=== PATIENT | female | born 1975 | race Caucasian/White ===

== ENCOUNTER 2019-05-13 02:33 | Emergency (ER) | payer BC, OTHER ==
[~2019-05-13] VITALS: Ht 162.5 cm; Wt 62.7 kg
[2019-05-13] MEDS ORDERED: RT-ALBUTEROL/IPRATROPIUM 3 ML (DUONEB) VIAL INH STA ×2 (02:40→03:36)
--- NOTE | 2019-05-13 02:48 | ED Dyspnea ---
General Stated Complaint: BREATHING PROBLEMS Source of Information: Patient History of Present Illness Date Seen by Provider: May 13, 2019 Time Seen by Provider: 02:33 Initial Comments 44 yo F presenting with shortness of breath and cough for over a week. She has right sided chest pain since yesterday morning and it radiates into her right arm. She has had similar pain and symptoms in the past with a collapsed lung. She has had 2 previous episodes of pneumothorax in the past. She has had URI symptoms recently but felt she was doing ok and that it was just a cold until yesterday morning when the pain started. Then overnight she was having continued pain on the right that kept making it harder for her to breath so she finally had her family bring her to the hospital to be evaluated. She denies using any tobacco. She does use an albuterol inhaler and has been using it more recently but does not feel it was helping her. she has been coughing up thick yellow sputum and has been wheezing recently. Allergies and Home Medications Allergies Coded Allergies: pseudoephedrine (Verified Adverse Reaction, Severe, 05/13/19) tachycardia, feels like she is on "speed" Home Medications Albuterol Sulfate 2.5 Mg/3 Ml Vial.neb, 2.5 MG INH Q4H PRN for WHEEZING Prescribed by: ERENDIRA GLYNN on 05/13/19 0347 Azithromycin 250 Mg Tablet, 250 MG PO DAILY Prescribed by: ERENDIRA GLYNN on 05/13/19327 Fluticasone Propion/Salmeterol 1 Each Blst.w.dev, 1 EACH IH Q12H Dispense 1 month supply/device Prescribed by: ERENDIRA GLYNN on 05/13/19 0328 Patient Home Medication List Home Medication List Reviewed: Yes Review of Systems Review of Systems Constitutional: No chills; fever (off and on) EENTM: no symptoms reported Respiratory: cough, phlegm (thick yellow sputum with cough), short of breath Cardiovascular: chest pain (right sided since Friday morning) Gastrointestinal: no symptoms reported Genitourinary: no symptoms reported Musculoskeletal: see HPI, other (right sided chest pain going into right arm since Friday morning) Skin: no symptoms reported Psychiatric/Neurological: Anxiety Past Nnjlfym-Sypmpw-Xgkngl Hx Past Med/Social Hx: Reviewed Nursing Past Med/Soc Hx Patient Social History Smoking Status: Former Smoker Past Medical History Surgeries: Yes (chest tube x 2) Respiratory: Yes Asthma Physical Exam Vital Signs Vital Signs - First Documented 05/13/19 02:47 Temp 36.5 Pulse 97 Resp 24 B/P (MAP) 181/93 (122) Pulse Ox 93 O2 Delivery Room Air Capillary Refill : Height, Weight, BMI Height: '" Weight: lbs. oz. kg; BMI Method: General Appearance: WD/WN, Anxious, Mild Distress HEENT: PERRL/EOMI, Normal ENT Inspection, Pharynx Normal Neck: Full Range of Motion, Non Tender, Supple Respiratory: Chest Non Tender, No Accessory Muscle Use, No Respiratory Distress, Wheezing (present in RUL especially) Cardiovascular: Regular Rate, Rhythm, Normal Peripheral Pulses Neurologic/Psychiatric: Alert, Oriented x3, No Motor/Sensory Deficits Skin: Normal Color, Warm/Dry Progress/Results/Core Measures Results/Orders My Orders Orders - ERENDIRA GLYNN MD Albuterol/Ipra Inhalation Soln (Duoneb I (05/13/19 02:40) Svn Small Volume Nebulizer (05/13/19 02:40) Chest Pa/Lat (2 View) (05/13/19 02:42) Dexamethasone Injection (Decadron Inject (05/13/19 03:15) Azithromycin Tablet (Zithromax Tablet) (05/13/19 03:15) Albuterol/Ipra Inhalation Soln (Duoneb I (05/13/19 03:36) Rx-Albuterol Nebs (Rx-Proventil Nebs) (05/13/19 03:36) Svn Small Volume Nebulizer (05/13/19 03:36) Vital Signs/I&O 05/13/19 02:47 Temp 36.5 Pulse 97 Resp 24 B/P (MAP) 181/93 (122) Pulse Ox 93 O2 Delivery Room Air Progress Progress Note #1: Progress Note she has breath sounds throughout but does have wheezing worse in RUL. Will try a duoneb breathing treatment and obtain 2 view CXR. Progress Note #2: Progress Note No acute abnormality on CXR or pneumothorax seen on my review of her 2 view CXR. She feels much better after her duoneb breathing treatment. Try steroid injection with azithromycin. monitor for reaction to the steroid and plan to do another treatment before discharge. try to d/c on home nebulizer and finish z pack as well as take mucinex. Refill Advair for home as well since she had been on it previously. Progress Note #3: Progress Note Tolerating steroid shot so given a duoneb treatment prior to d/c and sent with nebulizer and take home pack of albuterol for nebulizer. 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 Diagnostic Imaging Diagonstic Imaging: Xray Plain Films/CT/US/NM/MRI: chest Comments On my review of her two-view chest x-ray did not appreciate any acute pneumothorax or pneumonia or infiltrate. She does have some apparent COPD type c hanges. There are increased inflammatory changes. Departure Impression Primary Impression: Bronchitis with bronchospasm Additional Impressions: Dyspnea Qualified Codes: R06.02 - Shortness of breath Upper respiratory infection with cough and congestion Disposition: HOME, SELF-CARE Condition: Stable Departure-Patient Inst. Decision time for Depature: 03:46 Referrals: BRIA GARDUNO MD (PCP/Family) Primary Care Physician Patient Instructions: Acute Bronchitis, Adult (DC), Shortness of Breath (Dyspnea) (DC), Bacterial Upper Respiratory Infection, Adult (DC) Add. Discharge Instructions: Take the full course of antibiotics. Use Mucinex to help loosen cough and congestion. Drink plenty of water to help loosen your cough and congestion Use a Humidifier at the bedside to help with your cough and congestion. Continue on your inhaler and use the Advair as well to help with your breathing and wheezing. Check with Dr. Garduno for continued trouble breathing Scripts Nebulizer (Compact Compressor Nebulizer) 1 Each Each EACH MC Q4H PRN for WHEEZING, #1 0 Refills 1 Nebulizer with Accessory Kit to use Albuterol Nebulized every 4 hours as needed for wheezing From Acute bronchitis, Short of breath and dyspnea Prov: ERENDIRA GLYNN MD 05/13/19 Albuterol Sulfate (Albuterol Sulfate) 2.5 Mg/3 Ml Vial.neb 2.5 MG INH Q4H PRN for WHEEZING for 14 Days, #50 EA 1 Refill Prov: ERENDIRA GLYNN MD 05/13/19 Azithromycin (Azithromycin) 250 Mg Tablet 250 MG PO DAILY for 4 Days, #4 TAB 0 Refills Prov: ERENDIRA GLYNN MD 05/13/19 Fluticasone Propion/Salmeterol (Fluticasone-Salmeterol 250-50) 1 Each Blst.w.dev 1 EACH IH Q12H for 30 Days, #1 0 Refills Dispense 1 month supply/device Prov: ERENDIRA GLYNN MD 05/13/19 Work/School Note: Work Release Form Date Seen in the Emergency Department: May 13, 2019 Return to Work: May 14, 2019 Restrictions: No Restrictions ERENDIRA GLYNN MD May 13, 2019 02:48 POS
[2019-05-13] MEDS ORDERED: AZITHROMYCIN 250 MG TAB (ZITHROMAX) PO STA (03:15)
[2019-05-13] MEDS ORDERED: DEXAMETHASONE 10 MG/ML (DECADRON) 1 ML VIAL IM STA (03:15)
[2019-05-13] MEDS ORDERED: FLUT1BLS12 IH (03:28)
[2019-05-13] MEDS ORDERED: AZIT250T12 PO (03:28)
[2019-05-13] MEDS ORDERED: RX-ALBUTEROL NEB 2.5 MG/3 ML PACK #5 IH STA (03:36)
[2019-05-13] MEDS ORDERED: ALBU2.5V4 INH (03:47)
[2019-05-13 03:51] VITALS: BP 157/90
[2019-05-13] MEDS ORDERED: NEBU1KIT3 MC (03:58)
--- NOTE | 2019-05-13 07:10 | Diagnostic Imaging Report ---
INDICATION: Dyspnea in patient with previous pneumothorax PA and lateral views of the chest are obtained. There is no previous study for comparison. Heart size and pulmonary vascularity are within normal limits. There is extensive lucency within the upper lobes bilaterally indicating air trapping and probable bullous emphysema. No definite pneumothorax identified. There is no significant pleural fluid. There is mild diffuse thoracic spondylosis. IMPRESSION: Findings are compatible with emphysema with primarily upper lobe involvement. No definite acute abnormalities identified however comparison with older studies would be of use. Dictated by: Dictated on workstation # [id number]
== END 2019-05-13 04:00 | disposition home or self-care (01) ==
LOC: ER FS 02:38
DX: J40 Bronchitis, not specified as acute or chronic (principal); J98.01 Acute bronchospasm; J06.9 Acute upper respiratory infection, unspecified; Z88.8 Allergy status to other drugs, medicaments and biological substances; Z87.891 Personal history of nicotine dependence; Z87.09 Personal history of other diseases of the respiratory system
CPT/HCPCS: 71046; 94640

== ENCOUNTER 2020-05-16 19:03 | Emergency (ER) | payer BC ==
[~2020-05-16] VITALS: Ht 162.5 cm; Wt 60.6 kg
[~2020-05-16 19:03] MED LIST: ALBU2.5V4 INH; AZIT250T12 PO; FLUT1BLS12 IH; NEBU1KIT3 MC
--- NOTE | 2020-05-16 19:35 | ED Head Injury ---
General Chief Complaint: Laceration Stated Complaint: EYEBROW LAC Nursing Triage Note: Pt c/o left eyebrow laceration, hit on chicken coop door. Source: patient Exam Limitations: no limitations History of Present Illness Date Seen by Provider: May 16, 2020 Time Seen by Provider: 19:31 Initial Comments Patient states approximately one hour prior to arrival she bent over and hit the chicken coop door with her left eyebrow sustaining a laceration was no loss of consciousness no other injuries tetanus shots are up-to-date there is no bleeding no history of contamination Occurred: just prior to arrival Severity: mild Location: frontal Method of Injury: direct blow Loss of Consciousness: no loss of consciousness Associated Systoms: Denies Symptoms Allergies and Home Medications Allergies Coded Allergies: pseudoephedrine (Verified Adverse Reaction, Severe, 05/13/19) tachycardia, feels like she is on "speed" Home Medications Albuterol Sulfate 2.5 Mg/3 Ml Vial.neb, 2.5 MG INH Q4H PRN for WHEEZING Prescribed by: ERENDIRA GLYNN on 05/13/19 034 Azithromycin 250 Mg Tablet, 250 MG PO DAILY Prescribed by: ERENDIRA GLYNN on 05/13/19327 Fluticasone Propion/Salmeterol 1 Each Blst.w.dev, 1 EACH IH Q12H Dispense 1 month supply/device Prescribed by: ERENDIRA GLYNN on 05/13/19327 Patient Home Medication List Home Medication List Reviewed: Yes Review of Systems Review of Systems Constitutional: no symptoms reported Eyes: See HPI; Denies Blurred Vision, Denies Decreased Acuity, Denies Previous Injury, Denies Other Ears, Nose, Mouth, Throat: no symptoms reported, see HPI; denies nose pain, denies nose discharge, denies loose teeth Respiratory: No orthopnea, No phlegm, No stridor Cardiovascular: No palpitations, No syncope Gastrointestinal: No nausea, No vomiting Genitourinary: No dysuria, No hematuria Skin: No rash Psychiatric/Neurological: See HPI; Denies Anxiety, Denies Depressed, Denies [place] Seizures, Denies Weakness, Denies Other Endocrine: Denies Increased Thrist, Denies Increased Urine, Denies Unexplained Weight Gain, Denies Unexplaned Weight Loss Hematologic/Lymphatic: Denies See HPI, Denies Anemia, Denies Blood Clots Past Vnmbvqy-Hqpwgj-Fryapu Hx Past Med/Social Hx: Reviewed Nursing Past Med/Soc Hx Patient Social History Alcohol Use: Denies Use Recreational Drug Use: No Smoking Status: Current Everyday Smoker Type Used: Cigarettes Recent Foreign Travel: No Contact w/Someone Who Travel: No Recent Infectious Disease Expo: No Recent Hopitalizations: No Physical Abuse: No Sexual Abuse: No Mistreated: No Seasonal Allergies Seasonal Allergies: No Past Medical History Surgeries: Yes (chest tube x 2) Respiratory: Yes Asthma Physical Exam Vital Signs Vital Signs - First Documented 05/16/20 19:07 Temp 36.5 Pulse 94 Resp 16 B/P (MAP) 156/89 (111) Pulse Ox 96 O2 Delivery Room Air Capillary Refill : Less Than 3 Seconds Height, Weight, BMI Height: '" Weight: lbs. oz. kg; 22.00 BMI Method: General Appearance: WD/WN, no apparent distress HEENT: PERRL/EOMI, normal ENT inspection, TMs normal Neck: non-tender, full range of motion, supple Cardiovascular: regular rate, rhythm, no edema, no gallop Respiratory: chest non-tender, lungs clear, normal breath sounds Extremities: normal range of motion, non-tender Psychiatric: alert, oriented x 3 Skin: normal color, warm/dry, other (approximately 3 cm laceration parallel to the left eyebrow lateral orbital ridge area and no foreign body no bleeding) Waldemar Coma Score Best Eye Response: (4) Open Spontaneously Best Verbal Response: (5) Oriented Best Motor Response: (6) Obeys Commands Procedures/Interventions Wound Location: Face Wound Length (cm): 3 Wound's Depth, Shape: superficial Wound Explored: no foreign body removed Irrigated w/ Saline (ccs): 100 Wound Debrided: minimal Other Closure Supply: Steri Strip 1/" Sterile Dressing Applied?: Yes Progress Patient is a linear laceration lateral ridge shared decision making she chose to have Dermabond and Steri-Stripped as opposed to suturing plan will be to irrigate the wound dry it approximated with Dermabond and Steri-Strips structural instructions Progress/Results/Core Measures Results/Orders Vital Signs/I&O 05/16/20 19:07 Temp 36.5 Pulse 94 Resp 16 B/P (MAP) 156/89 (111) Pulse Ox 96 O2 Delivery Room Air Blood Pressure Mean: 111 Departure Impression Primary Impression: Laceration of eyebrow Disposition: 01 HOME, SELF-CARE Condition: Improved Departure-Patient Inst. Decision time for Depature: 19:34 Referrals: BRIA TATE MD (PCP/Family) Primary Care Physician Patient Instructions: Laceration Repair With Glue (DC), Laceration Repair YANA CERON DO May 16, 2020 19:35
[2020-05-16] MEDS ORDERED: TETANUS,DIPTH,PERTUSS P/F (BOOSTRIX) 0.5 ML VIAL IM ONE (20:15)
[2020-05-16 20:23] VITALS: BP 156/89
== END 2020-05-16 20:25 | disposition home or self-care (01) ==
LOC: EDUNIT# 19:03 → ER FS 19:04
DX: S01.112A Laceration without foreign body of left eyelid and periocular area, initial encounter (principal); J45.909 Unspecified asthma, uncomplicated; F17.210 Nicotine dependence, cigarettes, uncomplicated; Z88.8 Allergy status to other drugs, medicaments and biological substances; Z79.51 Long term (current) use of inhaled steroids; W22.8XXA Striking against or struck by other objects, initial encounter
CPT/HCPCS: 90715; 99284